=== PATIENT | male | born 1980 | race African-American/Black ===

== ENCOUNTER 2017-05-13 11:11 | Emergency (ER) | payer OTHER ==
[~2017-05-13] VITALS: Ht 188 cm; Wt 84.0 kg
[2017-05-13 11:17] VITALS: TEMP 36.6; Ht 188 cm; Wt 84.0 kg
[2017-05-13] MEDS ORDERED: MoRPHine SULFATE 10 MG/ML CARP/VIAL IV STA (11:36)
[2017-05-13] MEDS ORDERED: ONDANSETRON INJ 2 MG/ML 2 ML VIAL IV STA (11:36)
[2017-05-13] MEDS ORDERED: SODIUM CHLORIDE 0.9% 1000ML 1,000 ML IV STA (11:36)
[2017-05-13] MEDS ORDERED: OPTIRAY 320 IV PRN (11:45)
[2017-05-13 11:54] LABS: BASO % 0.1 %; BASO ABS # 0.01 K/uL (0-0.2); HEMATOCRIT 44.1 % (42-52); HEMOGLOBIN 14.1 g/dL (14.0-18.0); IG# 0.02 K/uL (0.00-0.02); LYMPH ABS # 0.43 K/uL (1.2-3.4); MEAN CELL VOLUME 77.6 fL (80-100); MEAN CORPUSCULAR HEMOGLOBIN 24.8 pg (25-34); MONO % 1.6 %; MONO ABS # 0.14 K/uL (0.11-0.59); NEUT % 93.1 %; NEUT ABS # 7.92 K/uL (1.4-6.5); PLATELET COUNT 205 K/uL (130-400); RED CELL DISTRIBUTION WIDTH SD 36.5 fL (36.4-46.3); WHITE BLOOD COUNT 8.52 K/uL (4.8-10.8)
[2017-05-13 12:11] LABS: ALBUMIN 4.7 gm/dl (3.4-5.0); CALCIUM 9.7 mg/dl (8.5-10.1); CREATININE 1.06 mg/dl (0.60-1.40); POTASSIUM 3.6 mmol/L (3.5-5.1)
[2017-05-13 12:14] LABS: TOTAL PROTEIN 8.3 gm/dl (6.4-8.2)
[2017-05-13] MEDS ORDERED: OMEP40CA41 PO (12:30)
--- NOTE | 2017-05-13 12:58 | DIAGNOSTIC IMAGING REPORT ---
GALLBLADDER-ABD LIMITED CLINICAL HISTORY: ABDOMINAL PAIN/GI pain. Nausea. TECHNIQUE: Ultrasound COMPARISON STUDY: None FINDINGS: Moderate gallbladder sludge. No shadowing gallstones. Common bile duct 5 mm. Liver is uniform throughout. Pancreas and right kidney are unremarkable. IMPRESSION: Moderate gallbladder sludge. Normal caliber bile duct. The above report was generated using voice recognition software. It may contain grammatical, syntax or spelling errors. Electronically signed by: Eleno Thomas M.D. 05/13/2017 12:56 PM Dictated Date/Time: 05/13/2017 12:55 PM
--- NOTE | 2017-05-13 15:16 | DIAGNOSTIC IMAGING REPORT ---
CT SCAN OF THE ABDOMEN AND PELVIS WITH IV CONTRAST CLINICAL HISTORY: Right upper quadrant abdominal pain. COMPARISON STUDY: Abdominal ultrasound dated 05/13/2017. TECHNIQUE: Following the IV administration of 94 cc of Optiray 320, CT scan of the abdomen and pelvis is performed from the lung bases to the proximal femora. Images are reviewed in the axial, sagittal, and coronal planes. IV contrast was administered without complication. A dose lowering technique was utilized adhering to the principles of ALARA. CT DOSE: 284.25 mGy.cm FINDINGS: Lung bases: The heart is normal in size and without pericardial effusion. There are trace pleural effusions. Lung bases are otherwise clear. Liver: The contrast-enhanced liver is normal in size, contour, and attenuation. Fatty infiltration is seen adjacent to falciform ligament. There is no intrahepatic biliary ductal dilatation. The hepatic veins and portal veins are patent. Gallbladder: Calcified gallstones are identified. A stone is seen in the region of the cystic duct on image #113. The gallbladder is distended and thick-walled. Pericholecystic inflammation is identified and the appearance is consistent with acute cholecystitis. Spleen: Normal in size and attenuation. Pancreas: Unremarkable. Adrenal glands: Unremarkable. Kidneys: The contrast enhanced kidneys are normal in size and without hydronephrosis. The kidneys enhance symmetrically. Abdominal vasculature: The abdominal aorta is normal in course and caliber. Bowel: The small bowel and colon are normal in course and caliber. The appendix is well-visualized and normal. Peritoneum: There is no intraperitoneal free air or abdominal ascites. There is a small fat-containing umbilical hernia. Lymphadenopathy: None. Pelvic viscera: The bladder, prostate, and seminal vesicles are normal as visualized. Skeletal structures: No lytic or blastic lesions are seen. IMPRESSION: 1. Cholelithiasis with evidence of acute cholecystitis. Surgical consultation is advised. 2. Trace pleural effusions. Electronically signed by: Joseph Bro M.D. 05/13/2017 3:15 PM Dictated Date/Time: 05/13/2017 3:09 PM
[2017-05-13 16:33] VITALS: BP 128/72; PULSE 49; O2SAT 98
--- NOTE | 2017-05-13 17:22 | Surgery Consultation ---
Consultation Date of Consultation: May 13, 2017. Attending Physician: Carlos Reason for Consultation: Acute Cholecystitis (Kasey Garay PA-C) History of Present Illness Ronn is a 36-year-old male who presented to the emergency room department today with complaint of right upper quadrant abdominal pain that has been intermittent for the past 3 weeks. States the pain is located in the right upper abdomen with radiation to the right back. States his pain is very severe with associated nausea and vomiting. Pain seems to be worse at nighttime. Will last through the whole evening. States he is unsure of what types of foods can aggravate it given his current diet situation he can only eat what is given to him on the trays. He had a workup at the assisted including an ultrasound and x-ray which showed no concerning signs of gallstones or acute cholecystitis. States the pain started last evening and was severe. Has not been able to eat anything since 5 PM last night. Emergency room workup included labs which showed no leukocytosis. CMP showed no elevation of LFTs are total bilirubin. Gallbladder abdominal ultrasound showed moderate gallbladder sludge and normal common bile duct at 5 mm. No shadowing gallstones were seen. No mention of wall thickening or pericholecystic fluid. CT scan of the abdomen and pelvis with IV contrast showed calcified gallstones. A stent is seen in the region of the cystic duct. Gallbladder distended and thick-walled and there is also some pericholecystic inflammation present. These findings are consistent with acute cholecystitis. (Kasey Garay .BRETT) Past Medical/Surgical History Medical Problems: (1)RUQ abdominal pain 2. Chronic back pain Past Surgical History: Left knee surgery for fractured patella (Kasey Garay PA-C) Social History Smoking Status: Never Smoker Alcohol Use: none Drug Use: none Housing Status: other (incarcerated) (Kasey Garay PA-C) Allergies Coded Allergies: No Known Allergies (Unverified , 05/13/17) Home Medications Scheduled Omeprazole (Prilosec), 40 MG PO DAILY Current Inpatient Medications Current Inpatient Medications Medications (Trade) Dose Ordered Sig/Beryl Route Start Time Stop Time Status Last Admin Dose Admin Ioversol (Optiray 320) 100 ml UD PRN IV 05/13/17 11:45 05/17/17 11:44 (Kasey Garay PA-C) Review of Systems Constitutional: No fever, No chills, No sweats Respiratory: No cough, No shortness of breath Cardiovascular: No chest pain Abdomen: + pain, + nausea, + vomiting, No diarrhea, No constipation, No GI bleeding Genitourinary - Male: No hematuria, No dysuria (Kasey Garay, TOSHAC) Physical Exam Date Time Temp Pulse Resp B/P (MAP) Pulse Ox O2 Delivery O2 Flow Rate FiO2 05/13/17 16:33 49 16 128/72 98 Room Air 05/13/17 15:40 56 16 123/84 99 Room Air 05/13/17 13:54 52 16 146/82 99 Room Air 05/13/17 12:17 49 05/13/17 11:17 36.6 53 16 160/77 99 Room Air General Appearance: WD/WN, no apparent distress Head: normocephalic, atraumatic Eyes: sclerae normal ENT: hearing grossly normal Neck: trachea midline Respiratory/Chest: lungs clear, normal breath sounds, no respiratory distress, no accessory muscle use Cardiovascular: regular rate, rhythm, no murmur Abdomen/GI: normal bowel sounds, non tender, soft, no organomegaly Neurologic/Psych: alert, normal mood/affect, oriented x 3 Skin: normal color, warm/dry, no rash (Kasey Garay ., DOUG-C) Laboratory Results Last 24 Hours Test 05/13/17 11:45 05/13/17 13:52 White Blood Count 8.52 K/uL Red Blood Count 5.68 M/uL Hemoglobin 14.1 g/dL Hematocrit 44.1 % Mean Corpuscular Volume 77.6 fL Mean Corpuscular Hemoglobin 24.8 pg Mean Corpuscular Hemoglobin Concent 32.0 g/dl Platelet Count 205 K/uL Mean Platelet Volume 10.0 fL Neutrophils (%) (Auto) 93.1 % Lymphocytes (%) (Auto) 5.0 % Monocytes (%) (Auto) 1.6 % Eosinophils (%) (Auto) 0.0 % Basophils (%) (Auto) 0.1 % Neutrophils # (Auto) 7.92 K/uL Lymphocytes # (Auto) 0.43 K/uL Monocytes # (Auto) 0.14 K/uL Eosinophils # (Auto) 0.00 K/uL Basophils # (Auto) 0.01 K/uL RDW Standard Deviation 36.5 fL RDW Coefficient of Variation 13.0 % Immature Granulocyte % (Auto) 0.2 % Immature Granulocyte # (Auto) 0.02 K/uL Sodium Level 139 mmol/L Potassium Level 3.6 mmol/L Chloride Level 104 mmol/L Carbon Dioxide Level 29 mmol/L Anion Gap 6.0 mmol/L Blood Urea Nitrogen 10 mg/dl Creatinine 1.06 mg/dl Est Creatinine Clear Calc Drug Dose 111.0 ml/min Estimated GFR () 103.4 Estimated GFR (Non- 89.2 BUN/Creatinine Ratio 9.4 Random Glucose 110 mg/dl Calcium Level 9.7 mg/dl Total Bilirubin 0.5 mg/dl Direct Bilirubin 0.1 mg/dl Aspartate Amino Transf (AST/SGOT) 25 U/L Alanine Aminotransferase (ALT/SGPT) 19 U/L Alkaline Phosphatase 89 U/L Total Protein 8.3 gm/dl Albumin 4.7 gm/dl Lipase 87 U/L Urine Color YELLOW Urine Appearance CLEAR Urine pH 6.0 Urine Specific [place] 1.005 Urine Protein NEG Urine Glucose (UA) NEG Urine Ketones TRACE Urine Occult Blood NEG Urine Nitrite NEG Urine Bilirubin NEG Urine Urobilinogen NEG Urine Leukocyte Esterase NEG (Kasey Garay PA-C) Assessment & Plan 36-year-old male who presented to the emergency room with midline and right upper quadrant abdominal pain that has been ongoing intermittently for the past 3 weeks. Workup in the emergency room showed gallbladder sludge present on ultrasound however CT scan showing evidence of cholelithiasis with gallbladder wall thickening or pericholecystic fluid. On examination patient is nontender negative Dumont sign no rigidity or guarding. Labs show no leukocytosis and CMP showing normal LFTs with normal total bilirubin and normal lipase. Plan: Patient currently not having any abdominal pain. No fevers, no leukocytosis. Patient most likely will need his gallbladder removed however there is no acute indication for surgery at this time. Discussed with patient that this could be scheduled as an outpatient procedure. Recommend low-fat diet in the meantime until patient can be seen in the office to schedule outpatient cholecystectomy. Dr. Gonzalez has seen and evaluated this patient agrees with above. (Kasey Garay PA-C) I interviewed and examined this patient. I reviewed his radiologic studies including the images. I reviewed his laboratories. He has a history of intermittent right upper quadrant pain at night. He had pain again today but it is now resolved and is no longer tender. His CT scan shows cholelithiasis with sludge. He will need a cholecystectomy at some point. He does not wish to have that performed today. He can make an appointment in the office and will see him there and schedule him as an outpatient. (Eleno Gonzalez M.D.)
--- NOTE | 2017-05-14 06:53 | EMERGENCY ROOM VISIT NOTE ---
ED Visit Note First contact with patient: 11:23 Chief Complaint: Abdominal pain. History of Present Illness: Mr. Bird is a 36 year-old black male who ambulates into the ED accompanied by 2 senior care guards complaining of right upper quadrant abdominal pain. Historically patient reports he has no gastrointestinal disorders and has never had any abdominal surgery. Patient reports he has been having ongoing right upper quadrant abdominal pain intermittently over the last 3 weeks while in senior care. Residential records show that an ultrasound was performed and showed no cholelithiasis, cholecystitis, and a normal common bile duct. KUB was performed and was negative. Additionally multiple laboratory tests were performed and were negative. Patient reports his current episode of pain started approximately 2 AM in the morning; he reports this is normal for his pain is started in the morning hours , approximately 8-9 hours ago. He reports since that time his pain has been constant. He is not able to describe his discomfort even from a list of adjectives. His pain is radiating into his thoracic back and throughout his abdomen. His pain worsens with palpation and lying supine. He has not identified any alleviating factors related to his pain. Associated with his pain he reports he has been having in her mitten episodes of diarrhea; 1-2 per day he describes as watery, constant nausea with intermittent vomiting and dry heaving and chills but no alonso fever. Patient denies skin eruptions, skin color changes, upper respiratory tract symptoms, shortness of breath, chest pain, hematemesis, constipation, rectal bleeding, black/tarry stools, urinary symptoms, hematuria. Review of Systems: As noted above in history of present illness. All body systems were reviewed and found to be negative as noted above. Past Medical History: As previously noted, chronic back pain. Current Medications: Patient has been given Phenergan and omeprazole for his symptoms without relief Allergies to Medications: Patient denies. Social History: Patient is currently incarcerated. Physical Examination: Vital Signs: Date Time Temp Pulse Resp B/P (MAP) Pulse Ox O2 Delivery O2 Flow Rate FiO2 05/13/17 16:33 49 16 128/72 98 Room Air 05/13/17 15:40 56 16 123/84 99 Room Air 05/13/17 13:54 52 16 146/82 99 Room Air 05/13/17 12:17 49 05/13/17 11:17 36.6 53 16 160/77 99 Room Air GENERAL: 36-year-old male in mild to moderate distress due to pain, nontoxic- appearing, afebrile and hemodynamically stable. NEUROLOGICAL: Awake, alert and oriented to person, place and time. Answering questions appropriately and following commands. Normal gait. Good hand eye coordination. SKIN: Warm, dry and pink. No soft tissue eruptions or trauma noted. HEENT: Atraumatic and normocephalic. PERRLA. Sclera white and conjunctiva pink. Oral cavity moist and pink. Pharynx is nonerythematous or edematous. Speech normal. No lymphadenopathy. Trachea midline. No jugular venous distention. BACK: No tenderness over the bony spine. No CVA tenderness. THORAX: Lungs sounds are clear to auscultation and equal bilaterally with symmetrical chest wall. No wheezing, rales or rhonchi. No crepitus, tenderness , subcutaneous air or deformities noted. HEART: Regular rate and rhythm. No gallops, rubs or murmurs are appreciated. ABDOMEN: Flat and soft with diffuse tenderness most severe in the epigastric and right upper quadrant. Decreased bowel sounds in all quadrants. No guarding , rigidity or organomegaly. EXTREMITIES: Moves all extremities well on command and with purpose. All distal neurovascular statuses are intact and equal bilaterally. ED Course: Patient is assessed as noted above. Patient's medication list was reviewed. Laboratory Testing: Test 05/13/17 11:45 05/13/17 13:52 Range/Units White Blood Count 8.52 4.8-10.8 K/uL Red Blood Count 5.68 4.7-6.1 M/uL Hemoglobin 14.1 14.0-18.0 g/dL Hematocrit 44.1 42-52 % Mean Corpuscular Volume 77.6 80-100 fL Mean Corpuscular Hemoglobin 24.8 25-34 pg Mean Corpuscular Hemoglobin Concent 32.0 32-36 g/dl Platelet Count 205 130-400 K/uL Mean Platelet Volume 10.0 7.4-10.4 fL Neutrophils (%) (Auto) 93.1 % Lymphocytes (%) (Auto) 5.0 % Monocytes (%) (Auto) 1.6 % Eosinophils (%) (Auto) 0.0 % Basophils (%) (Auto) 0.1 % Neutrophils # (Auto) 7.92 1.4-6.5 K/uL Lymphocytes # (Auto) 0.43 1.2-3.4 K/uL Monocytes # (Auto) 0.14 0.11-0.59 K/uL Eosinophils # (Auto) 0.00 0-0.5 K/uL Basophils # (Auto) 0.01 0-0.2 K/uL RDW Standard Deviation 36.5 36.4-46.3 fL RDW Coefficient of Variation 13.0 11.5-14.5 % Immature Granulocyte % (Auto) 0.2 % Immature Granulocyte # (Auto) 0.02 0.00-0.02 K/uL Sodium Level 139 136-145 mmol/L Potassium Level 3.6 3.5-5.1 mmol/L Chloride Level 104 98-107 mmol/L Carbon Dioxide Level 29 21-32 mmol/L Anion Gap 6.0 3-11 mmol/L Blood Urea Nitrogen 10 7-18 mg/dl Creatinine 1.06 0.60-1.40 mg/dl Est Creatinine Clear Calc Drug Dose 111.0 ml/min Estimated GFR () 103.4 Estimated GFR (Non- 89.2 BUN/Creatinine Ratio 9.4 10-20 Random Glucose 110 70-99 mg/dl Calcium Level 9.7 8.5-10.1 mg/dl Total Bilirubin 0.5 0.2-1 mg/dl Direct Bilirubin 0.1 0-0.2 mg/dl Aspartate Amino Transf (AST/SGOT) 25 15-37 U/L Alanine Aminotransferase (ALT/SGPT) 19 12-78 U/L Alkaline Phosphatase 89 45-117 U/L Total Protein 8.3 6.4-8.2 gm/dl Albumin 4.7 3.4-5.0 gm/dl Lipase 87 73-393 U/L Urine Color YELLOW Urine Appearance CLEAR CLEAR Urine pH 6.0 4.5-7.5 Urine Specific [place] 1.005 1.000-1.030 Urine Protein NEG NEG Urine Glucose (UA) NEG NEG Urine Ketones TRACE NEG Urine Occult Blood NEG NEG Urine Nitrite NEG NEG Urine Bilirubin NEG NEG Urine Urobilinogen NEG NEG Urine Leukocyte Esterase NEG NEG Gallbladder Ultrasound: Was reviewed by myself and read by the radiologist showing moderate gallbladder sludge but no shadowing gallstones. Common bile duct 5 mm. Liver is uniform throughout. Pancreas and right kidney is unremarkable. Contrast Abdominal/Pelvic CT: Was reviewed by myself and read by the radiologist showing cholelithiasis with evidence of acute cholecystitis; surgical consultation was advised. Additional trait pleural effusions were noted. Patient was hydrated with normal saline, he received 6 mg of morphine IV for pain and 4 mg of Zofran IV for nausea. Patient was reassessed multiple times during her stay in the emergency department. Patient's case was reviewed with Dr. Benjamin; we agreed on diagnostic approach , treatment, disposition and plan. Patient's case was consulted with Dr. Gonzalez, general surgery; he independently assessed the patient. After his assessment he came to me and reported that he did not feel the patient was in acute cholecystitis but felt he did have gallbladder disease. He did not believe at this time because the patient was pain and symptom-free that in the emergency cholecystectomy was indicated and that the patient could follow-up as an outpatient in his office for scheduled cholecystectomy. Patient in senior care guards were educated about today's findings and instructed on his treatment plan; they verbalized understanding and agreement with this plan. Clinical Impression: Cholelithiasis. Decision-Making: Initially my differential diagnosis I considered acute cholecystitis, hepatitis, pancreatitis, kidney infection, kidney stone, GERD, bowel obstruction and other causes. Disposition: Patient discharged back to the senior care accompanied by the guards; prior to departure he was reassessed and subjectively reported that he was pain and symptom-free. Plan: It was encouraged at the present give the patient appropriate pain and antinausea medications as needed. It was encouraged that the patient use a low-fat diet. It was encouraged that the patient have a follow-up appointment with Dr. Gonzalez for outpatient cholecystectomy. It was encouraged that the patient be return emergency department for uncontrolled severe pain, fevers, uncontrolled vomiting or any new/concerning symptoms.
== END 2017-05-13 16:43 | disposition home or self-care (01) ==
LOC: C.EDB 11:15 → C.EDA 16:43
DX: K80.20 Calculus of gallbladder without cholecystitis without obstruction (principal)